=== PATIENT | female | born 1940 | race Caucasian/White ===

== ENCOUNTER 2022-04-17 09:15 | Outpatient (CLI) | payer OTHER, MEDICARE | END 2022-04-17 09:16 | disposition short-term general hospital (02) | LOC: EMS 09:15 | DX: R41.82 Altered mental status, unspecified (principal); R94.31 Abnormal electrocardiogram [ECG] [EKG]; R61 Generalized hyperhidrosis; W19.XXXA Unspecified fall, initial encounter; Y92.092 Bedroom in other non-institutional residence as the place of occurrence of the external cause | CPT/HCPCS: A0425; A0426 ==

== ENCOUNTER 2022-07-29 08:00 | Outpatient (CLI) | payer MEDICARE, OTHER | END 2022-07-29 23:59 | disposition home or self-care (01) | LOC: LAB.S 08:00 | PROVIDERS: ATTEND Physician Assistant Medical | DX: L03.115 Cellulitis of right lower limb (principal) | CPT/HCPCS: 87070; 87181; 87205 ==

== ENCOUNTER 2022-12-05 08:00 | Outpatient (CLI) | payer MEDICARE | END 2022-12-05 23:59 | disposition home or self-care (01) | LOC: LAB.S 08:00 | PROVIDERS: ATTEND Registered Nurse | DX: R19.7 Diarrhea, unspecified (principal); R10.30 Lower abdominal pain, unspecified; R11.2 Nausea with vomiting, unspecified | CPT/HCPCS: 82962 ==

== ENCOUNTER 2022-12-05 10:23 | Outpatient (CLI) | payer MEDICARE ==
--- NOTE | 2022-12-05 12:16 | XRAY Report ---
PROCEDURE: Lumbar Spine 2 View INDICATIONS: LUMBAR BACK PAIN TECHNIQUE: 3 views of the lumbar spine were acquired. COMPARISON: None. FINDINGS: Bones: 5 [id number] vertebrae are present. There is normal bony alignment. Moderately severe disc height loss L4-5 and mild disc height loss L5-S1. Mild endplate sclerosis and trace spurring at L4-5 and minimal spurring at the other levels. Mild facet arthropathy L4-5. No vertebral body gerardo sourav fractures. No suspicious bony lesions. Soft tissues: Overlying bowel gas pattern is normal. No suspicious soft tissue calcifications. Hea vy abdominal aortic atherosclerotic calcification. IMPRESSION: 1. Moderately severe degenerative disc and slight endplate degeneration at L4-5. Reviewed by: Araseli Vargas MD on 12/05/2022 12:15 PM PST Approved by: Araseli Vargas MD on 12/05/2022 12:15 PM PST Station ID: [id number]
[2022-12-05 14:41] LABS: BILIRUBIN,TOTAL 2.2 mg/dL (0.2-1.0); CALCIUM 8.9 mg/dL (8.5-10.3); POTASSIUM 4.3 mmol/L (3.5-5.0); TOTAL PROTEIN 6.6 g/dL (6.7-8.2)
[2022-12-05 14:53] LABS: BASOPHILS % (AUTO) 0.2 %; HCT - HEMATOCRIT 48.4 % (37.0-47.0); HGB - HEMOGLOBIN 15.3 g/dL (12.0-16.0); LYMPHOCYTES # (AUTO) 0.7 10^3/uL (1.5-3.5); LYMPHOCYTES % (AUTO) 5.8 %; MEAN CORPUSCULAR HEMOGLOBIN 29.5 pg (27.0-31.0); MEAN CORPUSCULAR HGB CONC 31.6 g/dL (32.0-36.0); MEAN CORPUSCULAR VOLUME 93.4 fL (81.0-99.0); MEAN PLATELET VOLUME 12.9 fL (7.9-10.8); MONOCYTES # (AUTO) 0.7 10^3/uL (0.0-1.0); MONOCYTES % (AUTO) 6.3 %; NEUTROPHILS # (AUTO) 9.8 10^3/uL (1.5-6.6); NEUTROPHILS % (AUTO) 87.1 %; PLT - PLATELET COUNT 98 10^3/uL (130-450); RED BLOOD COUNT 5.18 10^6/uL (4.20-5.40); RED CELL DISTRIBUTION WIDTH 13.3 % (12.0-15.0); WHITE BLOOD COUNT 11.2 x10^3/uL (4.8-10.8)
[2022-12-05 14:59] LABS: THYROID STIMULATING HORMONE 2.48 uIU/mL (0.34-5.60)
[2022-12-05 15:00] LABS: ALBUMIN 3.6 g/dL (3.2-5.5); ALBUMIN/GLOBULIN RATIO 1.2 (1.0-2.2); CREATININE 1.4 mg/dL (0.4-1.0)
[2022-12-05 15:48] LABS: ESTIMATED AVERAGE GLUCOSE 108 mg/dL (70-100); HEMOGLOBIN A1c% 5.4 % (4.27-6.07)
== END 2022-12-05 10:24 | disposition home or self-care (01) ==
LOC: DI.S 10:23
PROVIDERS: ATTEND Registered Nurse
DX: M47.816 Spondylosis without myelopathy or radiculopathy, lumbar region (principal); M51.36 Other intervertebral disc degeneration, lumbar region; R11.2 Nausea with vomiting, unspecified; R73.9 Hyperglycemia, unspecified
CPT/HCPCS: 36415; 80053; 83036; 84443; 85025

== ENCOUNTER 2022-12-06 09:59 | Emergency (ER) | payer MEDICARE ==
--- OUTSIDE RECORDS SUMMARY | 2022-12-06 10:08 | EXTERNAL MEDICAL SUMMARY RPT | Continuity of Care Document ---
:1940 Author Organization [facility] [address] [place] [address] Phone Care Team Providers Name Role Phone Unavailable Unavailable Unavailable Em Underwood Robert Unavailable Unavailable Jaguar Patient Registrar, Chary Unavailable Unava ilable Allergies No information. Encounters No information. Functional Status No information. Immunizations No information. Medications date description facility 2022-12-05 00:00 polyethylene glycol 3350 [facility] 2022-12-05 00:00 polyethylene glycol 3350 [facility] 2022-12-05 00:00 polyethylene glycol 3350 [facility] 2022-12-05 00:00 polyethylene glycol 3350 [facility] Problems date description facility 2022-12-05 00:00 Nausea and vomiting [facility] 2022-12-05 00:00 Low back pain [facility] Prim [facility] 2022-12-05 00:00 Lower abdominal pain [facility] Pr [facility] 2022-12-05 00:00 Lumbago [facility] Prim [facility] 2022-12-05 00:00 Nausea with vomiting [facility] Pr imary [facility] 2022-12-05 00:00 Diarrhea [facility] Prim [facility]do [facility] 2022-12-05 00:00 Abdominal pain, other specified [facility] Primary Care & site; multiple sites [facility] [place] 2022-12-05 00:00 Other abnormal glucose [facility] 2022-12-05 00:00 Hyperglycemia [facility] Prim geraldo [facility] 2022-12-05 00:00 Low back pain, unspecified [facility] 2022-12-05 00:00 Lower abdominal pain, unspecified Walk [facility] 2022-12-05 00:00 Nausea with vomiting, unspecified [facility] 2022-12-05 00:00 Diarrhea, unspecified [facility] P rimary [facility] 2022-12-05 00:00 Hyperglycemia, unspecified [facility] Procedures date description facility 2022-12-05 00:00 Visit Code Hold Walk[facility]In [facility] 2022-12-05 00:00 XR LUMBAR SPINE 2-3 VIEW [facility] 2022-12-05 00:00 COMPREHENSIVE METABOLIC PANEL Walk[facility]In [facility] 2022-12-05 00:00 POC URINALYSIS DIP [facility] 2022-12-05 00:00 POC GLUCOSE BLOOD TEST Walk[facility] 2022-12-05 00:00 HGBA1C Walk[facility]In [facility] 2022-12-05 00:00 CBC W/Diff/Plt Walk[facility] 2022-12-05 00:00 TSH WITH REFLEX TO FT4 Walk[facility] Results/Labs test date author facility value unit interpret ation Result panel 1 (unknown) (no date) (unknown) Walk[facility] (no value) (units ([facility] nown[facility] Primary unknown[facility] Result panel 2 (unknown) (no date) (unknown) Walk[facility] (no value) [facility]units [facility]own[facility] Result panel 3 (unknown) (no date) (unknown) [facility] (no value) [facility]units [facility]own[facility] Result panel 4 (unknown) (no date) (unknown) Walk[facility] (no value) [facility]units ([facility]own[facility] Result panel 5 (unknown) (no date) (unknown) [facility] (no value) [facility]units ([facility]own[facility] Result panel 6 (unknown) (no date) (unknown) Walk[facility] (no value) [facility]units ([facility]own[facility] Result panel 7 (unknown) (no date) (unknown) [facility] (no value) [facility]units [facility]own[facility] Result panel 8 (unknown) (no date) (unknown) Walk[facility] (no value) [facility]units ([facility]own[facility] Result panel 9 (unknown) (no date) (unknown) [facility] (no value) [facility] Result panel 10 (unknown) (no date) (unknown) [facility] (no value) [facility]units [facility] Result panel 11 (unknown) (no date) (unknown) [facility] (no value) [facility]units ([facility]own[facility] Result panel 12 (unknown) (no date) (unknown) [facility] (no value) [facility]units ([facility] Result panel 13 (unknown) (no date) (unknown) [facility] (no value) [facility]units [facility] Result panel 14 (unknown) (no date) (unknown) [facility] (no value) [facility]units ([facility]own[facility] Result panel 15 (unknown) (no date) (unknown) [facility] (no value) [facility]units ([facility]own[facility] Result panel 16 (unknown) (no date) (unknown) [facility] (no value) [facility]units [facility]own[facility] Result panel 17 (unknown) (no date) (unknown) [facility] (no value) [facility]units [facility] Result panel 18 (unknown) (no date) (unknown) [facility] (no value) [facility]units [facility] Result panel 19 (unknown) (no date) (unknown) [facility] (no value) [facility]units [facility] Result panel 20 (unknown) (no date) (unknown) [facility] (no value) [facility]units [facility] Result panel 21 (unknown) (no date) (unknown) [facility] (no value) [facility]units [facility]own[facility] Result panel 22 (unknown) (no date) (unknown) [facility] (no value) [facility]units [facility]own[facility] Result panel 23 (unknown) (no date) (unknown) [facility] (no value) [facility]units [facility]own[facility] Result panel 24 (unknown) (no date) (unknown) [facility] (no value) [facility]units [facility] Result panel 25 (unknown) (no date) (unknown) [facility] (no value) [facility]units [facility]own[facility] Result panel 26 (unknown) (no date) (unknown) [facility] (no value) [facility]units [facility]own[facility] Result panel 27 (unknown) (no date) (unknown) [facility] (no value) [facility]units [facility]own[facility] Result panel 28 (unknown) (no date) (unknown) [facility] (no value) [facility]units [facility]own[facility] Result panel 29 (unknown) (no date) (unknown) [facility] (no value) [facility]units [facility]own[facility] Result panel 30 (unknown) (no date) (unknown) [facility] (no value) [facility]units [facility]own[facility] Result panel 31 (unknown) (no date) (unknown) Walk[facility] (no value) [facility]units [facility]own[facility] Result panel 32 (unknown) (no date) (unknown) [facility] (no value) [facility]units [facility]own[facility] Result panel 33 (unknown) (no date) (unknown) Walk[facility] (no value) [facility]units [facility] Result panel 34 (unknown) (no date) (unknown) Walk[facility] (no value) [facility]units [facility]own[facility] Result panel 35 (unknown) (no date) (unknown) Walk[facility] (no value) [facility]units ([facility]own[facility] Result panel 36 (unknown) (no date) (unknown) Walk[facility] (no value) [facility]units [facility]own[facility] Result panel 37 (unknown) (no date) (unknown) Walk[facility] (no value) (units ([facility]own[facility] Result panel 38 (unknown) (no date) (unknown) Walk[facility] (no value) (units ([facility]own[facility] Result panel 39 (unknown) (no date) (unknown) Walk[facility] (no value) [facility]units [facility]own[facility] Result panel 40 (unknown) (no date) (unknown) Walk[facility] (no value) [facility]units [facility]own[facility] Result panel 41 (unknown) (no date) (unknown) Walk[facility] (no value) [facility]own[facility] Result panel 42 (unknown) (no date) (unknown) [facility] (no value) [facility]units [facility]own[facility] Result panel 43 (unknown) (no date) (unknown) [facility] (no value) [facility]units [facility] Result panel 44 (unknown) (no date) (unknown) Walk[facility] (no value) [facility]units [facility] Result panel 45 (unknown) (no date) (unknown) [facility] (no value) [facility]units [facility]own[facility] Result panel 46 (unknown) (no date) (unknown) [facility] (no value) [facility] Result panel 47 (unknown) (no date) (unknown) [facility] (no value) [facility]units [facility] Result panel 48 (unknown) (no date) (unknown) [facility] (no value) [facility]units [facility] Result panel 49 (unknown) (no date) (unknown) Walk[facility] (no value) [facility]units [facility] Result panel 50 (unknown) (no date) (unknown) [facility] (no value) [facility]units [facility] Result panel 51 (unknown) (no date) (unknown) Walk[facility] (no value) [facility]units [facility] Result panel 52 (unknown) (no date) (unknown) [facility] (no value) [facility]units [facility] Result panel 53 (unknown) (no date) (unknown) Walk-[facility] (no value) [facility]units [facility] Result panel 54 (unknown) (no date) (unknown) Walk[facility] (no value) [facility]units [facility]own[facility] Result panel 55 (unknown) (no date) (unknown) [facility] (no value) [facility]units [facility]own[facility] Result panel 56 (unknown) (no date) (unknown) Walk[facility] (no value) [facility]units [facility]own[facility] Result panel 57 (unknown) (no date) (unknown) Walk-[facility] (no value) [facility]units [facility]own[facility] Result panel 58 (unknown) (no date) (unknown) Walk[facility] (no value) (units ([facility]own[facility] Result panel 59 (unknown) (no date) (unknown) Walk-[facility] (no value) [facility]units [facility] Result panel 60 (unknown) (no date) (unknown) Walk[facility] (no value) [facility]units [facility]own[facility] Result panel 61 (unknown) (no date) (unknown) Walk-[facility] (no value) [facility]units [facility]own[facility] Result panel 62 (unknown) (no date) (unknown) Walk[facility] (no value) [facility]units [facility]own[facility] Result panel 63 (unknown) (no date) (unknown) Walk-[facility] (no value) [facility]units [facility]own[facility] Result panel 64 (unknown) (no date) (unknown) Walk-[facility] (no value) (units ([facility]own[facility] Result panel 65 (unknown) (no date) (unknown) Walk-In (no value) (units ([facility]own[facility] Result panel 66 (unknown) (no date) (unknown) Walk-[facility] (no value) (units [facility] Result panel 67 (unknown) (no date) (unknown) Walk-[facility] (no value) (units [facility] Result panel 68 (unknown) (no date) (unknown) Walk-[facility] (no value) (units ([facility]own[facility] Result panel 69 (unknown) (no date) (unknown) [facility] (no value) (units [facility] Result panel 70 (unknown) (no date) (unknown) [facility] (no value) [facility]units [facility]own[facility] Result panel 71 (unknown) (no date) (unknown) Walk-[facility] (no value) [facility]units [facility]own[facility] Result panel 72 (unknown) (no date) (unknown) Walk-[facility] (no value) [facility]units [facility]own[facility] Result panel 73 (unknown) (no date) (unknown) Walk-[facility] (no value) [facility]units [facility]own[facility] Result panel 74 (unknown) (no date) (unknown) Walk-In (no value) (units ([facility]own[facility] Result panel 75 (unknown) (no date) (unknown) Walk-[facility] (no value) [facility]units [facility]own[facility] Result panel 76 (unknown) (no date) (unknown) Walk-In (no value) [facility]units [facility]own[facility] Result panel 77 (unknown) (no date) (unknown) Walk-[facility] (no value) (units ([facility]own[facility] Result panel 78 (unknown) (no date) (unknown) Walk-In (no value) (units ([facility] nown[facility] Result panel 79 (unknown) (no date) (unknown) Walk-In (no value) (units ([facility]own[facility] Result panel 80 (unknown) (no date) (unknown) Walk-In (no value) (units ([facility]own[facility] Result panel 81 (unknown) (no date) (unknown) Walk-In (no value) [facility]units [facility]own[facility] Result panel 82 (unknown) (no date) (unknown) Walk-[facility] (no value) (units ([facility] Result panel 83 (unknown) (no date) (unknown) Walk-In (no value) (units ([facility]own[facility] Result panel 84 (unknown) (no date) (unknown) Walk[facility] (no value) (units [facility]own[facility] Result panel 85 (unknown) (no date) (unknown) Walk[facility]In (no value) (units ([facility]own[facility] Result panel 86 (unknown) (no date) (unknown) Walk[facility] (no value) (units [facility] Result panel 87 (unknown) (no date) (unknown) Walk-[facility] (no value) (units ([facility]own[facility] Result panel 88 (unknown) (no date) (unknown) Walk[facility]In (no value) (units ([facility]own[facility] Result panel 89 (unknown) (no date) (unknown) Walk[facility] (no value) (units ([facility]own[facility] Result panel 90 (unknown) (no date) (unknown) Walk-In (no value) (units ([facility] nown[facility] Result panel 91 (unknown) (no date) (unknown) Walk[facility] (no value) (units ([facility]own[facility] Result panel 92 (unknown) (no date) (unknown) Walk-In (no value) (units ([facility] nown[facility] Result panel 93 (unknown) (no date) (unknown) Walk-In (no value) (units ([facility]own[facility] Result panel 94 (unknown) (no date) (unknown) Walk-In (no value) (units ([facility] nown[facility] Result panel 95 (unknown) (no date) (unknown) Walk-In (no value) (units ([facility]own[facility] Result panel 96 (unknown) (no date) (unknown) Walk-In (no value) (units ([facility]own[facility] Result panel 97 (unknown) (no date) (unknown) Walk-In (no value) (units ([facility] nown) [facility] Result panel 98 (unknown) (no date) (unknown) Walk-In (no value) (units ([facility] nown[facility] Result panel 99 (unknown) (no date) (unknown) Walk-In (no value) (units ([facility] nown[facility] Result panel 100 (unknown) (no date) (unknown) Walk-In (no value) (units ([facility]own[facility] Result panel 101 (unknown) (no date) (unknown) Walk-In (no value) (units ([facility] nown[facility] Result panel 102 (unknown) (no date) (unknown) Walk-In (no value) (units ([facility]own[facility] Result panel 103 (unknown) (no date) (unknown) Walk-In (no value) (units ([facility] nown[facility] Result panel 104 (unknown) (no date) (unknown) Walk-In (no value) (units ([facility] nown[facility] Result panel 105 (unknown) (no date) (unknown) Walk-In (no value) (units ([facility]own[facility] Result panel 106 (unknown) (no date) (unknown) Walk-In (no value) (units ([facility]own[facility] Result panel 107 (unknown) (no date) (unknown) Walk-In (no value) (units ([facility]own[facility] Result panel 108 (unknown) (no date) (unknown) Walk-In (no value) (units ([facility] Result panel 109 (unknown) (no date) (unknown) Walk-In (no value) (units ([facility] Result panel 110 (unknown) (no date) (unknown) Walk-In (no value) (units ([facility] Result panel 111 (unknown) (no date) (unknown) Walk[facility]In (no value) (units ([facility]own[facility] Result panel 112 (unknown) (no date) (unknown) [facility] (no value) (units ([facility]own[facility] Result panel 113 (unknown) (no date) (unknown) Walk-In (no value) (units ([facility] Result panel 114 (unknown) (no date) (unknown) Walk-[facility] (no value) (units [facility]own[facility] Result panel 115 (unknown) (no date) (unknown) Walk-In (no value) (units [facility] Result panel 116 (unknown) (no date) (unknown) Walk-In (no value) (units [facility]own[facility] Result panel 117 (unknown) (no date) (unknown) Walk-In (no value) (units ([facility] nown[facility] Result panel 118 (unknown) (no date) (unknown) Walk-In (no value) (units ([facility]own[facility] Result panel 119 (unknown) (no date) (unknown) Walk-In (no value) (units ([facility]own[facility] Result panel 120 (unknown) (no date) (unknown) Walk-In (no value) (units ([facility] nown[facility] Result panel 121 (unknown) (no date) (unknown) Walk-In (no value) (units ([facility]own[facility] Result panel 122 (unknown) (no date) (unknown) Walk-In (no value) (units ([facility]own[facility] Result panel 123 (unknown) (no date) (unknown) Walk-In (no value) (units ([facility] nown[facility] Result panel 124 (unknown) (no date) (unknown) Walk-In (no value) (units ([facility] nown[facility] Result panel 125 (unknown) (no date) (unknown) Walk-In (no value) (units ([facility] nown[facility] Result panel 126 (unknown) (no date) (unknown) Walk-In (no value) (units ([facility] nown[facility] Result panel 127 (unknown) (no date) (unknown) Walk-In (no value) (units ([facility] nown[facility] Result panel 128 (unknown) (no date) (unknown) Walk-In (no value) (units ([facility]own[facility] Social History date description facility 2022-12-05 00:00 Never smoker [facility] 2022-12-05 00:00 Unknown if ever smoked [facility] 2022-12-05 00:00 Unknown if ever smoked [facility] Vital Signs date measurement value units 2022-12-05 00:00 BMI 24.95 kg/m2 2022-12-05 00:00 BP_diastolic 82 mmHg 2022-12-05 00:00 BP_systolic 115 mmHg 2022-12-05 00:00 heart_rate 91 /min 2022-12-05 00:00 height_metric 167.64 cm 2022-12-05 00:00 height_standard 66 in 2022-12-05 00:00 respiration_rate 16 /min 2022-12-05 00:00 temperature_metric 36.11 C 2022-12-05 00:00 temperature_standard 97 F 2022-12-05 00:00 weight_metric 69.85 kg 2022-12-05 00:00 weight_standard 154 lb
[2022-12-06 11:07] LABS: BASOPHILS % (AUTO) 0.1 %; EOSINOPHILS % (AUTO) 0.1 %; HCT - HEMATOCRIT 48.2 % (37.0-47.0); HGB - HEMOGLOBIN 15.3 g/dL (12.0-16.0); LYMPHOCYTES # (AUTO) 0.8 10^3/uL (1.5-3.5); LYMPHOCYTES % (AUTO) 5.9 %; MEAN CORPUSCULAR HEMOGLOBIN 29.5 pg (27.0-31.0); MEAN CORPUSCULAR HGB CONC 31.7 g/dL (32.0-36.0); MEAN CORPUSCULAR VOLUME 92.9 fL (81.0-99.0); MEAN PLATELET VOLUME 12.7 fL (7.9-10.8); MONOCYTES # (AUTO) 0.8 10^3/uL (0.0-1.0); MONOCYTES % (AUTO) 5.5 %; NEUTROPHILS % (AUTO) 87.7 %; PLT - PLATELET COUNT 84 10^3/uL (130-450); RED BLOOD COUNT 5.19 10^6/uL (4.20-5.40); RED CELL DISTRIBUTION WIDTH 13.4 % (12.0-15.0); WHITE BLOOD COUNT 13.7 x10^3/uL (4.8-10.8)
[2022-12-06 11:20] LABS: ALBUMIN/GLOBULIN RATIO 1.5 (1.0-2.2); BILIRUBIN,TOTAL 1.8 mg/dL (0.2-1.0); CREATININE 1.4 mg/dL (0.4-1.0); TOTAL PROTEIN 6.7 g/dL (6.7-8.2)
[2022-12-06] MEDS: SODIUM CHLORIDE 0.9% 1,000 ML IV STA (14:33)
--- NOTE | 2022-12-06 15:01 | CT Report ---
PROCEDURE: ABDOMEN/PELVIS WO INDICATIONS: abd pain/vomiting TECHNIQUE: Noncontrast 5 mm thick sections acquired from the diaphragms to the symphysis. 5 mm coronal and sagi ttal reformats were then performed. For radiation dose reduction, the following was used: automated exposure control, adjustment of mA and/or kV according to patient size. COMPARISON: None. FINDINGS: Image quality: Excellent. ABDOMEN: Lung bases: Minimal to mild bilateral pleural effusions are present, left greater than right. Heart s ize is enlarged. Solid organs: Liver and spleen are normal in size. Gallbladder is unremarkable. Pancreas is normal in contours. No adrenal nodules. Kidneys are normal in size, without hydronephrosis or nephrolithi asis. Peritoneum and bowel: Unenhanced bowel loops demonstrate normal wall thickness and caliber. No free fluid or air. Nodes and vessels: No retroperitoneal or mesenteric adenopathy by size criteria. Abdominal aortic is ectatic. Miscellaneous: No ventral hernias. PELVIS: Genitourinary: Bladder wall thickness is normal. Miscellaneous: No inguinal hernias or adenopathy. Bones: No suspicious bony lesions. No vertebral body compression fractures. IMPRESSION: Mild bilateral effusions. Recommend interval follow-up to document resolution and include presence of underlying mass lesion. Reviewed by: Kerry Smith MD on 12/06/2022 2:59 PM PST Approved by: Kerry Smith MD on 12/06/2022 2:59 PM PST Station ID: [id number]
[2022-12-06 15:09] LABS: BILIRUBIN,URINE NEGATIVE (NEGATIVE); GLUCOSE, URINE (UA) NEGATIVE (NEGATIVE); KETONES,URINE (UA) NEGATIVE (NEGATIVE); LEUKOCYTE ESTERASE, URINE NEGATIVE (NEGATIVE); NITRITE,URINE NEGATIVE (NEGATIVE); OCCULT BLOOD,URINE NEGATIVE (NEGATIVE); PH,URINE 5.5 PH (5.0-7.5); PROTEIN,URINE NEGATIVE (NEGATIVE); UROBILINOGEN,URINE 1 (NORMAL) E.U./dL (NORMAL)
[2022-12-06 15:13] LABS: CLARITY,URINE CLEAR (CLEAR)
[2022-12-06 17:14] LABS: VBG PCO2 36.2 mmHg (41-51); VBG PH 7.365 (7.31-7.41)
[2022-12-06 17:15] LABS: VBG BASE EXCESS -4.4 mmol/L (-2 - +2); VBG HCO3 20.2 mmol/L (23-28); VBG OXYGEN SATURATION 30.2 % (60-80); VBG TOTAL CO2 21.3 mmol/L (24-29)
[2022-12-06 17:19] LABS: KETONES, SERUM (ACETEST) NEGATIVE (NEGATIVE)
[2022-12-06 17:26] LABS: ALBUMIN 3.9 g/dL (3.2-5.5); ALBUMIN/GLOBULIN RATIO 1.4 (1.0-2.2); ALKALINE PHOSPHATASE 50 IU/L (42-121); ALT ALANINE AMINOTRANSFERASE 92 IU/L (10-60); AST ASPARTATE AMINOTRANSFERASE 51 IU/L (10-42); BUN - BLOOD UREA NITROGEN 59 mg/dL (6-20); CALCIUM 8.3 mg/dL (8.5-10.3); CARBON DIOXIDE - CO2 20 mmol/L (21-32); CHLORIDE 104 mmol/L (101-111); CREATININE 1.3 mg/dL (0.4-1.0); GFR - MDRD 39 (>89); GLUCOSE 162 mg/dL (70-100); POTASSIUM 3.9 mmol/L (3.5-5.0); SODIUM 140 mmol/L (135-145); TOTAL PROTEIN 6.6 g/dL (6.7-8.2)
--- NOTE | 2022-12-06 17:57 | ED Physician Documentation ---
History of Present Illness - Stated complaint Stated Complaint: ABD PX,VOMIT - Chief complaint Chief Complaint: Abd Pain - History obtained from History obtained from: Other (Brother) - Additonal information Additional information: Patient is an 82-year-old female with a history of dementia presenting for evaluation after being seen at the walk-in clinic yesterday for abdominal pain and vomiting. She is a very poor historian and is not able to contribute much information. Her brother is at with her and able to provide some information that she has recently been reporting to the staff at [facility] that her abdomen was hurting and she was vomiting and so they recommended she be evaluated. She was seen at the walk-in clinic yesterday and given some IV fluids and also had labs checked. She received a phone call today that she should be seen in the emergency department due to abnormal labs. Patient's brother states that she has only lived in the area for 1 year and that her prior doctor was in [place]. She does not really take any medications and only uses Tylenol as needed.Patient currently denies any complaints to me. Review of Systems Unable to obtain: Dementia PD PAST MEDICAL HISTORY - Present Medications Home Medications: Ambulatory Orders Medication Instructions Recorded Confirmed polyethylene glycoL 3350 17 gm ORAL DAILY 12/06/22 12/06/22 [Polyethylene Glycol 3350] - Allergies Allergies/Adverse Reactions: Allergies Allergy/AdvReac Type Severity Reaction Status Date / Time No Known Drug Allergies Allergy Verified 12/06/22 10:42 PD ED PE NORMAL - General General: No acute distress, Well developed/nourished. No: Alert and oriented X 3 (Alert and oriented to person only, believes she is at [facility], unsure of date to why she is here) - HEENT HEENT: Atraumatic - Neck Neck: Supple, no meningeal sign - Cardiac Cardiac: RRR, No murmur - Respiratory Respiratory: No respiratory distress, Clear bilaterally - Abdomen Abdomen: Normal bowel sounds, Soft, Non tender, Non distended - Derm Derm: Warm and dry - Neuro Neuro: inspector publications 2-12 intact, No motor deficit, Normal speech. No: Alert and oriented X 3 (Per brother patient appears alert and oriented to her baseline. ) Results - Vitals Vitals: Vital Signs - 24 hr 12/06/22 12/06/22 12/06/22 10:34 14:13 16:04 Temperature 36.5 C Heart Rate 87 80 82 Respiratory 28 H 18 20 Rate Blood Pressure 111/62 106/79 107/73 O2 Saturation 99 95 96 12/06/22 18:00 Temperature 36.5 C Heart Rate 80 Respiratory 18 Rate Blood Pressure 110/70 O2 Saturation 98 Oxygen O2 Source Room air - Labs Labs: Laboratory Tests 12/06/22 12/06/22 12/06/22 11:00 11:00 14:51 WBC 13.7 H RBC 5.19 Hgb 15.3 Hct 48.2 H MCV 92.9 MCH 29.5 MCHC 31.7 L RDW 13.4 Plt Count 84 L MPV 12.7 H Neut # (Auto) 12.0 H Lymph # (Auto) 0.8 L Terry # (Auto) 0.8 Eos # (Auto) 0.0 Baso # (Auto) 0.0 Absolute Nucleated RBC 0.00 Nucleated RBC % 0.0 VBG pH VBG pCO2 VBG pO2 VBG HCO3 VBG Total CO2 VBG O2 Saturation VBG Base Excess Sodium 140 Potassium 4.0 Chloride 103 Carbon Dioxide 20 L Anion Gap 17.0 H BUN 63 H Creatinine 1.4 H Estimated GFR (MDRD) 36 L Glucose 176 H Calcium 9.0 Total Bilirubin 1.8 H AST 51 H ALT 95 H Alkaline Phosphatase 53 Total Protein 6.7 Albumin 4.0 Globulin 2.7 Albumin/Globulin Ratio 1.5 Lipase 55 H Urine Color YELLOW Urine Clarity CLEAR Urine pH 5.5 Ur Specific [place] 1.025 Urine Protein NEGATIVE Urine Glucose (UA) NEGATIVE Urine Ketones NEGATIVE Urine Occult Blood NEGATIVE Urine Nitrite NEGATIVE Urine Bilirubin NEGATIVE Urine Urobilinogen 1 (NORMAL) Ur Leukocyte Esterase NEGATIVE Ur Microscopic Review NOT INDICATED Urine Culture Comments NOT INDICATED Serum Ketones 12/06/22 12/06/22 17:08 17:08 WBC RBC Hgb Hct MCV MCH MCHC RDW Plt Count MPV Neut # (Auto) Lymph # (Auto) Terry # (Auto) Eos # (Auto) Baso # (Auto) Absolute Nucleated RBC Nucleated RBC % VBG pH 7.365 VBG pCO2 36.2 L VBG pO2 24.0 L VBG HCO3 20.2 L VBG Total CO2 21.3 L VBG O2 Saturation 30.2 L VBG Base Excess -4.4 L Sodium 140 Potassium 3.9 Chloride 104 Carbon Dioxide 20 L Anion Gap 16.0 H BUN 59 H Creatinine 1.3 H Estimated GFR (MDRD) 39 L Glucose 162 H Calcium 8.3 L Total Bilirubin 2.0 H AST 51 H ALT 92 H Alkaline Phosphatase 50 Total Protein 6.6 L Albumin 3.9 Globulin 2.7 Albumin/Globulin Ratio 1.4 Lipase Urine Color Urine Clarity Urine pH Ur Specific Fri[place] Urine Protein Urine Glucose (UA) Urine Ketones Urine Occult Blood Urine Nitrite Urine Bilirubin Urine Urobilinogen Ur Leukocyte Esterase Ur Microscopic Review Urine Culture Comments Serum Ketones NEGATIVE PD Medical Decision Making - ED course Complexity details: reviewed results, re-evaluated patient, d/w patient ED course: Patient presenting for evaluation of abnormal labs that were done yesterday at the walk-in clinic where she was seen for reported history of abdominal pain and vomiting. Due to the dementia patient is not able to provide any meaningful history and brother is also only able to provide very limited history as she is at [facility].She currently denies any complaints and her vital signs seem stable. Her abdominal exam appears benign. She does not appear to have any respiratory distress.Her labs were reviewed which do show a slightly elevated anion gap. She was given IV fluids. Recheck does not show significant change. CT scan of the abdomen pelvis is unremarkable. It is unclear what her baseline labs are as I am unable to find any in our system or through the [facility].It is after hours and her brother is unsure of her prior PCP.Chest x-ray is shows some edema but no signs of pneumonia. Her urine is negative for infection. She does have a mild leukocytosis. She does have a mildly elevated bilirubin and LFTs but no right upper quadrant tenderness on exam. On CT scan there is no evidence of hepatomegaly.Discussed concerning symptoms to return for. Departure - Departure Disposition: 01 Home, Self Care Clinical Impression: Elevated liver function tests, Dehydration Condition: Stable Instructions: ED Dehydration Comments: You were given IV fluids with concerns for dehydration as you have lab abnormalities. I would recommend close follow-up with your primary care doctor as you may need recheck of your labs. Please make sure you are eating proper meals and getting enough nutrition.Your liver labs are slightly elevated. You may need an outpatient ultrasound of your liver. If anytime you have any worsening symptoms such as vomiting, fever, confusion or have any other concerns please return to the emergency department. Discharge Date/Time: 12/06/22 18:16
--- NOTE | 2022-12-06 18:01 | XRAY Report ---
PROCEDURE: Chest 1 View X-Ray INDICATIONS: weakness TECHNIQUE: One view of the chest was acquired. COMPARISON: None. FINDINGS: Surgical changes and devices: None. Lungs and pleura: Diffuse bilateral airspace opacities consistent with CHF or a diffuse infectious p rocess. Small left pleural effusion. Mediastinum: Heart size is enlarged. Bones and chest wall: No suspicious bony lesions. Overlying soft tissues appear unremarkable. IMPRESSION: Cardiomegaly and diffuse bilateral airspace opacities most consistent with CHF. A diffus e infectious process is less likely. Reviewed by: Ever Howard on 12/06/2022 6:00 PM [facility] Approved by: Ever Howard on 12/06/2022 6:00 PM [facility] Station ID: [id number]
[2022-12-06 18:16] VITALS: BP 110/70
== END 2022-12-06 18:16 | disposition home or self-care (01) ==
LOC: ED 09:59
DX: E86.0 Dehydration (principal); R94.5 Abnormal results of liver function studies; F03.90 Unspecified dementia, unspecified severity, without behavioral disturbance, psychotic disturbance, mood disturbance, and anxiety
CPT/HCPCS: 36415; 51701; 80053; 81001; 81003; 82009; 82803; 83690; 85025; 87086; 99284